=== PATIENT | female | born 1995 | race African-American/Black ===

== ENCOUNTER 2021-04-07 08:10 | Inpatient (IN) | payer OTHER ==
[2021-04-07 09:07] VITALS: BMI 23.5
[2021-04-07] MEDS ORDERED: BUTORPHANOL TARTRATE 1 MG/ML VIAL IVPB PRN ×2 (10:03)
[2021-04-07] MEDS ORDERED: DINOPROSTONE 10 MG VAGINAL SUPPOSITORY VG ONE (10:03)
[2021-04-07 10:48] LABS: BASO % 0.3 % (0-2.0); EOS % 0.2 % (0-4.5); HEMATOCRIT 31.6 % (32.4-45.2); HEMOGLOBIN 10.8 GM/dL (10.7-15.3); LYMPH % 20.8 % (8-40); MCH 30.4 pg (25.7-33.7); MCHC 34.3 g/dl (32.0-36.0); MEAN CELL VOLUME 88.6 fl (80-96); MEAN PLT VOLUME 7.1 fl (7.5-11.1); MONO % 8.3 % (3.8-10.2); NEUT % 70.4 % (42.8-82.8); PLATELET COUNT 284 10^3/uL (134-434); RBC 3.56 M/mm3 (3.60-5.2); RDW 13.5 % (11.6-15.6); WHITE BLOOD COUNT 7.4 K/mm3 (4.0-10.0)
[2021-04-07 10:54] LABS: INR 0.98 (0.83-1.09); PROTHROMBIN TIME (PATIENT) 11.9 SEC (9.7-13.0)
[2021-04-07 10:56] LABS: ACTIVATED PTT 25.8 SECONDS (25.2-36.5)
[2021-04-07 11:05] LABS: CALCIUM 8.4 mg/dL (8.5-10.1)
[2021-04-07 11:07] LABS: BLOOD UREA NITROGEN 8.7 mg/dL (7-18)
[2021-04-07 11:09] LABS: CREATININE 0.7 mg/dL (0.55-1.3)
[2021-04-07] MEDS: ELECTROLYTE-148 SOLN 1,000 ML IV SCH ×2 (11:15→21:05)
[2021-04-07] MEDS ORDERED: AZITHROMYCIN 500 MG TABLET PO ONE (15:19)
[2021-04-07] MEDS ORDERED: AMPICILLIN - 2 GM in SODIUM CHLORIDE 100 ML IVPB ONE (15:43)
[2021-04-07] MEDS ORDERED: AZITHROMYCIN IVPB 500 MG/250 ML BAG IVPB ONE ×2 (16:45→18:15)
[2021-04-07] MEDS ORDERED: OXYTOCIN 30 UNITS in 0.9% NS 30 UNIT/500 ML INFUS.BAG IVPB SCH (20:15)
[2021-04-07] MEDS ORDERED: BUTORPHANOL TARTRATE 2 MG/ML VIAL ONE (20:29)
[2021-04-07] MEDS ORDERED: OXYTOCIN 30 UNITS in 0.9% NS 30 UNIT/500 ML INFUS.BAG IVPB ONE (20:57)
[2021-04-08] MEDS: ELECTROLYTE-148 SOLN 1,000 ML IV SCH ×2 (01:45→09:13)
[2021-04-08] MEDS ORDERED: AMPICILLIN SODIUM 2 GM VIAL ONE (05:00)
[2021-04-08] MEDS ORDERED: SODIUM CHLORIDE 100 ML IVPB ONE ×3 (09:09→16:51)
[2021-04-08] MEDS ORDERED: AMPICILLIN SODIUM 1 GM VIAL ONE ×3 (09:09→16:51)
[2021-04-08] MEDS: AMPICILLIN - 1 GM in SODIUM CHLORIDE 100 ML IVPB SCH ×2 (09:13→13:12)
[2021-04-08] MEDS ORDERED: PROMETHAZINE HCL 25 MG/1 ML VIAL IVPB PRN (11:09)
[2021-04-08] MEDS ORDERED: BUTORPHANOL TARTRATE 1 MG/ML VIAL IM PRN ×2 (11:09→11:10)
[2021-04-08] MEDS ORDERED: PROMETHAZINE HCL 25 MG/1 ML VIAL ONE (11:31)
[2021-04-08] MEDS ORDERED: BUTORPHANOL TARTRATE 2 MG/ML VIAL ONE (11:31)
[2021-04-08] MEDS ORDERED: FENTANYL/BUPIVACAINE/NS/PF - PCEA - 50 ML DISP.SYRIN EP ONE (13:23)
[2021-04-08] MEDS ORDERED: BUPIVACAINE HCL/PF 0.25% (2.5MG/ML) 10 ML VIAL ONE ×2 (13:31→14:09)
[2021-04-08] MEDS ORDERED: NALOXONE HCL 0.4 MG/ML VIAL IVPUSH PRN (14:19)
[2021-04-08] MEDS ORDERED: FENTANYL/BUPIVACAINE/NS/PF - PCEA - 50 ML DISP.SYRIN EP SCH (14:30)
[2021-04-08] MEDS ORDERED: METHYLERGONOVINE MALEATE 0.2 MG/1 ML AMP IM PRN (16:38)
[2021-04-08] MEDS ORDERED: BISACODYL 10 MG SUPP.RECT PR PRN (16:38)
[2021-04-08] MEDS ORDERED: ACETAMINOPHEN 325 MG TABLET (FP) PO PRN (16:38)
[2021-04-08] MEDS ORDERED: IBUPROFEN 600 MG TABLET (FP) PO PRN (16:38)
[2021-04-08] MEDS ORDERED: BENZOCAINE 20% 57 GM BOTTLE TP PRN (16:38)
[2021-04-08] MEDS ORDERED: WITCH HAZEL 50% (TUCKS) 40 PAD/JAR PAD TP PRN (16:38)
[2021-04-08] MEDS ORDERED: BENZOCAINE 28 GM HEMORRHOIDAL OINTMENT PR PRN (16:38)
[2021-04-08] MEDS ORDERED: OXYTOCIN 20 UNITS in 0.9% NS 20 UNIT/1,000 ML INFUS.BAG IV SCH (16:45)
[2021-04-08] MEDS ORDERED: OXYTOCIN 20 UNITS in 0.9% NS 20 UNIT/1,000 ML INFUS.BAG IV ONE (16:51)
[2021-04-08 19:52] LABS: CORD HCO3 21.2 mmHg (20-29); CORD PCO2 39.1 mmHg (30-78); CORD pH 7.352 (7.14-7.44)
[2021-04-08 19:55] LABS: CORD BASE EXCESS -6.4 mmol/L (0-2); CORD HCO3 21.6 mmHg (20-29); CORD PCO2 53.6 mmHg (30-78); CORD pH 7.224 (7.14-7.44)
[2021-04-08] MEDS ORDERED: SENNOSIDES/DOCUSATE COMBO (SENNA PLUS) TABLET (UD) PO SCH (22:00)
[2021-04-08] MEDS ORDERED: SENNOSIDES 8.8 MG/5 ML BULK BOTTLE PO SCH (22:00)
[2021-04-08] MEDS ORDERED: DOCUSATE NA 100 MG/10 ML UNIT-DOSE CUPS PO SCH (22:00)
[2021-04-08] MEDS ORDERED: ACETAMINOPHEN 650 MG/20.3 ML ORAL SOLUTION (CUPS) PO PRN (22:27)
[2021-04-08] MEDS ORDERED: IBUPROFEN 100 MG/5 ML UNIT DOSE CUPS PO PRN (22:28)
[2021-04-09] MEDS: AMPICILLIN - 1 GM in SODIUM CHLORIDE 100 ML IVPB SCH ×3 (07:39→07:41)
[2021-04-09 08:37] LABS: BASO % 0.2 % (0-2.0); EOS % 0.1 % (0-4.5); HEMATOCRIT 30.7 % (32.4-45.2); HEMOGLOBIN 10.4 GM/dL (10.7-15.3); LYMPH % 8.9 % (8-40); MCH 30.2 pg (25.7-33.7); MCHC 33.8 g/dl (32.0-36.0); MEAN CELL VOLUME 89.5 fl (80-96); MEAN PLT VOLUME 7.1 fl (7.5-11.1); MONO % 10.1 % (3.8-10.2); NEUT % 80.7 % (42.8-82.8); PLATELET COUNT 265 10^3/uL (134-434); RBC 3.44 M/mm3 (3.60-5.2); RDW 13.5 % (11.6-15.6); WHITE BLOOD COUNT 15.4 K/mm3 (4.0-10.0)
[2021-04-10 10:42] VITALS: BP 127/83; PULSE 69; TEMP 97.9
== END 2021-04-10 15:15 | disposition home or self-care (01) | DRG 560 ==
LOC: JLDR 08:10 → J3W 04-08 21:35
PROVIDERS: ADMIT Obstetrics & Gynecology; ATTEND Obstetrics & Gynecology
PROC: 3E0P7VZ Introduction of Hormone into Female Reproductive, Via Natural or Artificial Opening (ICD-10-PCS; 2021-04-07)
PROC: 10E0XZZ Delivery of Products of Conception, External Approach (ICD-10-PCS; principal; 2021-04-08)
DX: O48.0 Post-term pregnancy (principal); Z3A.40 40 weeks gestation of pregnancy; O99.013 Anemia complicating pregnancy, third trimester; Z22.330 Carrier of Group B streptococcus; Z37.0 Single live birth
CPT/HCPCS: 36415; 36600; 59409; 80048; 82803; 85025; 85610; 85730; 86780; 86850; 86900; 86901; C9803; U0003; U0005